=== PATIENT | female | born 1995 | race Caucasian/White ===

== ENCOUNTER 2018-03-05 16:47 | Inpatient (IN) | END 2018-03-08 15:15 | disposition home or self-care (01) | DRG 720 | DX: A41.9 Sepsis, unspecified organism (principal); M35.2 Behcet's disease; F33.1 Major depressive disorder, recurrent, moderate; Z87.11 Personal history of peptic ulcer disease; K31.9 Disease of stomach and duodenum, unspecified; K44.9 Diaphragmatic hernia without obstruction or gangrene; K20.9 Esophagitis, unspecified; K25.9 Gastric ulcer, unspecified as acute or chronic, without hemorrhage or perforation; D64.9 Anemia, unspecified ==